=== PATIENT | female | born 1965 | race Caucasian/White ===

== ENCOUNTER 2017-08-18 04:59 | Inpatient (IN) | payer OTHER ==
[2017-08-12 16:51] VITALS: BMI 22.6
--- NOTE | 2017-08-17 13:15 | HP ---
Admitting History and Physical - Primary Care Physician PCP: Everette Mike - Admission Chief Complaint: Left breast cancer History of Present Illness: 52 year old postmenapausal female who was found to have calcifi upper outer aspect left breast on mammogram 04/2017 and 2 areas of calcicfications seen on diagnostic mammogram 05/2017. She underwent stereotactic core biopsy 05/2017 showing and invasive ductal carcinoma upper outer quadrant and 12:00 showing radial sclerosing lesion and ADH on our slide reveiw. Seh underwent breast MRI showing left breast cancer and right enhancement and additional left finding Bilateral core biopsies were negative for cancer. 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 History Source: Patient Limitations to Obtaining History: No Limitations - Past Medical History ...LMP Comment: 2016 Endocrine: Yes: Osteopenia - Past Surgical History Past Surgical History: Yes: Appendectomy (1979) - Smoking History Smoking history: Never smoked Have you smoked in the past 12 months: No Aproximately how many cigarettes per day: 0 - Alcohol/Substance Use Hx Alcohol Use: Yes (SOCIAL) Home Medications - Allergies Allergies/Adverse Reactions: Allergies Allergy/AdvReac Type Severity Reaction Status Date / Time No Known Allergies Allergy Verified 08/12/17 16:43 - Home Medications Home Medications: Ambulatory Orders Ascorbic Acid [Vitamin C] 1,000 mg PO DAILY 08/12/17 Calcium Carbonate [Calcium] 500 mg PO DAILY 08/12/17 Family Disease History - Family Disease History Other Family History: mat aunt lung ca 67. mat uncle CRC Physical Examination Constitutional: Yes: Well Nourished Breast(s): Yes: Other (full C Cup with no ptosis recent biopsy changes from bilateral biopsies, no suspicious mass or adenopathy felt) Problem List - Problems (1) Breast cancer, left breast Code(s): C50.912 - MALIGNANT NEOPLASM OF UNSPECIFIED SITE OF LEFT FEMALE BREAST Qualifiers: Breast location: upper outer quadrant of breast Patient sex: female Assessment/Plan Bilateral total mastectomies left senetenel node biopsy possible axillary node dissection, left lymphoscintigram, reconstruction with DEIP
[2017-08-18] MEDS ORDERED: PAPAVERINE HCL 30 MG/1 ML 10 ML VIAL NR ONE (08:15)
[2017-08-18] MEDS ORDERED: BUPIVACAINE HCL/PF 0.25% (2.5MG/ML) 10 ML VIAL ONE (08:15)
[2017-08-18] MEDS ORDERED: HEPARIN NA (PORCINE) 5,000 UNITS/ML 1ML VIAL ONE (08:15)
[2017-08-18] MEDS ORDERED: ISOSULFAN BLUE 10 MG/ML VIAL SQ ONE (09:05)
[2017-08-18] MEDS ORDERED: MIDAZOLAM HCL 2 MG/2 ML SINGLE DOSE VIAL ONE ×4 (09:05→17:15)
[2017-08-18] MEDS ORDERED: PROPOFOL 20 ML ONE (09:06)
[2017-08-18] MEDS ORDERED: ROCURONIUM BROMIDE 50 MG/5 ML VIAL ONE ×2 (09:06→11:04)
[2017-08-18] MEDS ORDERED: LIDOCAINE HCL/PF 2% SDV 5ML VIAL ONE (09:07)
[2017-08-18] MEDS ORDERED: ceFAZolin SODIUM 1 GM VIAL ONE ×3 (09:29→22:09)
[2017-08-18] MEDS ORDERED: SODIUM CHLORIDE 0.9% P/F 10 ML VIAL IJ ONE ×3 (09:29→16:58)
[2017-08-18] MEDS ORDERED: ceFAZolin SODIUM 1 GM VIAL IVPB ONE ×2 (09:40→15:00)
[2017-08-18] MEDS ORDERED: ONDANSETRON 4 MG/2 ML VIAL ONE ×2 (09:44→20:08)
[2017-08-18] MEDS ORDERED: DEXAMETHASONE SOD PHOSPHATE 4 MG/1 ML VIAL ONE ×2 (09:44→20:08)
[2017-08-18] MEDS ORDERED: SCOPOLAMINE HYDROBROMIDE 1 PATCH PATCH.TD72 ONE (09:46)
[2017-08-18] MEDS ORDERED: HEPARIN NA (PORCINE) 5,000 UNITS/ML 1ML VIAL IVPUSH ONE (09:48)
[2017-08-18] MEDS ORDERED: HEPARIN NA (PORCINE) 5,000 UNITS/ML 1ML VIAL SQ ONE (09:48)
[2017-08-18] MEDS ORDERED: BUPIVACAINE LIPOSOME/PF (EXPAREL) 266 MG/20 ML VIAL NR ONE (10:15)
[2017-08-18] MEDS ORDERED: GLYCOPYRROLATE 0.2 MG/1 ML VIAL ONE ×2 (10:22→19:34)
[2017-08-18] MEDS ORDERED: VASOPRESSIN 20 UNITS/ML VIAL IV ONE (12:45)
[2017-08-18] MEDS ORDERED: VECURONIUM BROMIDE 10 MG VIAL ONE ×2 (13:41→16:58)
[2017-08-18 14:51] LABS: HEMATOCRIT 30.9 % (32.4-45.2); HEMOGLOBIN 10.1 GM/dL (10.7-15.3); MCH 28.9 pg (25.7-33.7); MCHC 32.9 g/dl (32.0-36.0); MEAN CELL VOLUME 87.9 fl (80-96); MEAN PLT VOLUME 8.8 fl (7.5-11.1); PLATELET COUNT 125 K/MM3 (134-434); RBC 3.51 M/mm3 (3.60-5.2)
[2017-08-18] MEDS ORDERED: ePHEDrine SULFATE 50 MG/1 ML AMPULE ONE (16:21)
[2017-08-18] MEDS ORDERED: oxyCODONE HCL 5 MG TABLET PO PRN (19:18)
[2017-08-18] MEDS ORDERED: ACETAMINOPHEN 325 MG TABLET (FP) PO PRN (19:21)
[2017-08-18] MEDS ORDERED: HYDROmorphone HCL CARPU-JECT 1 MG/1 ML DISP.SYRIN IVPB PRN (19:21)
[2017-08-18] MEDS ORDERED: FUROSEMIDE 40 MG/4 ML INJECTABLE VIAL ONE (19:28)
[2017-08-18] MEDS ORDERED: ASPIRIN 325 MG TABLET PO ONE (19:30)
[2017-08-18] MEDS ORDERED: LACTATED RINGERS SOLUTION 1,000 ML IV SCH ×2 (19:30→20:15)
[2017-08-18] MEDS ORDERED: NEOSTIGMINE METHYLSULFATE 0.5 MG/ML - 10 ML MDV ONE (19:34)
[2017-08-18] MEDS ORDERED: BACITRACIN 15 GM TUBE TOPICAL OINTMENT ONE (19:48)
[2017-08-18] MEDS ORDERED: HYDROmorphone *PCA* 10MG/50ML DISP.SYRIN PCA SCH (20:15)
[2017-08-18] MEDS ORDERED: PROMETHAZINE HCL 25 MG/1 ML VIAL IVPUSH PRN (20:15)
[2017-08-18] MEDS ORDERED: ONDANSETRON 4 MG/2 ML VIAL IVPUSH PRN ×2 (20:15)
[2017-08-18] MEDS ORDERED: DEXAMETHASONE SOD PHOSPHATE 4 MG/1 ML VIAL IVPUSH PRN (20:15)
[2017-08-18] MEDS ORDERED: PROMETHAZINE HCL 25 MG/1 ML VIAL IVPB PRN (20:15)
[2017-08-18] MEDS ORDERED: METOCLOPRAMIDE HCL INJECTION 10 MG/2 ML VIAL IVPUSH ONE (20:18)
[2017-08-18] MEDS ORDERED: HYDROmorphone *PCA* 6MG/30ML DISP.SYRIN PCA ONE (20:47)
[2017-08-18] MEDS ORDERED: ASPIRIN 325 MG ENTERIC COATED TABLET (FP) ONE (22:02)
[2017-08-18] MEDS: CEFAZOLIN 1 GM PUSH 1 GM/10 ML DISP.SYRIN IVPUSH SCH (22:08)
--- NOTE | 2017-08-18 23:30 | CONSULT ---
Consult - text type - Consultation Consultation Note: [facility] CC: POD #0 after Bilateral total mastectomies left sentinel node biopsy possible axillary node dissection, left lympho-scintigram, bilat breast reconstruction with DEIP HPI: Briefly Ms Powers is a 52 year old postmenopausal woman w/ invasive ductal carcinoma underwent planned procedure in OR today. Surgery was uneventful , had approx 1000cc intra-op blood loss, received 3x PRBC. Pt was extubated in PACU late in evening. Recovered well. Admitted to ICU for observation and close monitoring of flap perfusion. Had interflap doppler bilaterally, with R>L audible but both +. Pain controlled, hemodyanmically stable. Past Medical History Endocrine Osteopenia Past Surgical History Past Surgical History Appendectomy (1979) Smoking History Smoking history Never smoked Aproximately how many 0 cigarettes per day Alcohol/Substance Use Hx Alcohol Use Yes: SOCIAL Home Medications Medication Instructions Recorded Ascorbic Acid [Vitamin C] 1,000 mg PO DAILY 08/12/17 Calcium Carbonate [Calcium] 500 mg PO DAILY 08/12/17 Current Medications Acetaminophen (Tylenol -) 650 mg PO Q4H PRN PRN Reason: FEVER Ascorbic Acid (Vitamin C -) 1,000 mg PO DAILY [facility] Aspirin (Asa -) 325 mg PO DAILY [facility] Calcium Carbonate (Os-Aramis 500mg -) 500 mg PO DAILY [facility] Dexamethasone Sodium Phosphate (Decadron Injection -) 4 mg IVPUSH ONCE PRN PRN Reason: NAUSEA AND/OR VOMITING Diazepam (Valium -) 5 mg PO Q8H PRN PRN Reason: MUSCLE SPASMS Diphenhydramine HCl (Benadryl Injection -) 25 mg IVPB Q4H PRN PRN Reason: FOR ITCHING Diphenhydramine HCl (Benadryl Injection -) 12.5 mg IVPUSH ONCE PRN PRN Reason: FOR ITCHING Docusate Sodium (Colace -) 100 mg PO BID [facility] Last Admin: 08/18/17 23:32 Dose: 100 mg Enoxaparin Sodium (Lovenox -) 40 mg SQ DAILY [facility] Fentanyl (Sublimaze Injection -) 50 mcg IVPUSH [id number] PRN PRN Reason: PAIN-PACU ORDER X 4 DOSES ONLY Hydromorphone HCl (Dilaudid Injection -) 1 mg IVPB Q3H PRN PRN Reason: PAIN LEVEL 7 - 10 Hydromorphone HCl (Dilaudid Blood Bank Order Control Clerk -) 0 mg SHOPPER SHOPPER TOMASA PRN Reason: Protocol Stop: 08/25/17 20:16 Last Admin: 08/18/17 20:50 Dose: 6 mg Cefazolin Sodium (Ancef -) 1 gm in 10 mls @ 100 mls/hr IVPUSH Q6H-IV [facility]OM[facility] Last Admin: 08/18/17 22:08 Dose: 100 mls/hr Lactated Ringer's (Lactated Ringers Solution) 1,000 mls @ 125 mls/hr IV ASDIR TOMASA Last Admin: 08/18/17 22:16 Dose: 125 mls/hr Ondansetron HCl (Zofran Injection) 4 mg IVPUSH Q4H PRN PRN Reason: NAUSEA AND/OR VOMITING Ondansetron HCl (Zofran Injection) 4 mg IVPUSH Q6H PRN PRN Reason: NAUSEA AND/OR VOMITING Ondansetron HCl (Zofran Injection) 4 mg IVPUSH Q4H PRN PRN Reason: NAUSEA AND/OR VOMITING Oxycodone HCl (Roxicodone -) 5 mg PO Q4H PRN PRN Reason: PAIN LEVEL 1-5 Oxycodone HCl (Roxicodone -) 10 mg PO Q4H PRN PRN Reason: PAIN LEVEL 6-10 Promethazine HCl (Phenergan Injection -) 12.5 mg IVPUSH Q6H PRN PRN Reason: NAUSEA-FOR RESCUE AFTER 15 MIN Promethazine HCl (Phenergan Injection -) 12.5 mg IVPB Q6H PRN PRN Reason: NAUSEA AND/OR VOMITING ROS: 10pt review neg. No imaging. PE Vital Signs Temp 98.6 F 08/18/17 23:00 Pulse 99 H 08/18/17 23:08 Resp 18 08/18/17 23:08 BP 99/73 08/18/17 23:08 Pulse Ox 97 08/18/17 23:08 Intake & Output 08/17/17 08/18/17 08/18/17 23:59 11:59 23:59 Intake Total 1000 2400 Output Total 2276.0 Balance 1000 124.0 Intake: IV 1000 1350 Blood Product 1050 Output: Drainage 176.0 #1 Left Breast 30 #2 Left Abdomen 13 #4 Right Breast 8 Right Abdomen 20 Urine 1100 Estimated Blood Loss 1000 Other: Voiding Method Indwelling Catheter CBC, BMP 08/18/17 14:18 A/ 52 year old woman POD #0 Bilateral total mastectomies left sentinel node biopsy possible axillary node dissection, left lympho-scintigram, bilat breast reconstruction with DEIP P/ -pain control w/ Dilaudid SHOPPER -continuous doppler monitoring/flap viability, notify surgeon of any changes -monitor drain output -ASA -DVT prophy w/ lovenox [id number]
[2017-08-18] MEDS: DOCUSATE SODIUM 100 MG CAPSULE (FP) PO SCH (23:32)
[2017-08-19] MEDS: CEFAZOLIN 1 GM PUSH 1 GM/10 ML DISP.SYRIN IVPUSH SCH ×4 (02:23→21:20)
[2017-08-19] MEDS: ONDANSETRON 4 MG/2 ML VIAL IVPUSH PRN (02:41)
[2017-08-19 06:45] LABS: HEMATOCRIT 35.1 % (32.4-45.2); MCH 29.4 pg (25.7-33.7); MCHC 34.2 g/dl (32.0-36.0); MEAN CELL VOLUME 85.8 fl (80-96); MEAN PLT VOLUME 9.7 fl (7.5-11.1); PLATELET COUNT 169 K/MM3 (134-434); RBC 4.09 M/mm3 (3.60-5.2); RDW 14.2 % (11.6-15.6); WHITE BLOOD COUNT 16.8 K/mm3 (4.0-10.0)
--- NOTE | 2017-08-19 06:45 | OP ---
DATE OF OPERATION: 08/18/2017 PREOPERATIVE DIAGNOSIS: Left breast cancer, upper outer quadrant, with genetic predisposition for breast cancer, TERE (ataxia telangiectasia mutated) gene positive. POSTOPERATIVE DIAGNOSIS: Left breast cancer, upper outer quadrant, with genetic predisposition for breast cancer, TERE (ataxia telangiectasia mutated) gene positive. PROCEDURE: Bilateral inframammary nipple-sparing mastectomies with a left axillary sentinel lymph node biopsy and bilateral deep flap reconstruction. PRIMARY SURGEON: Dorinda Graves MD SEWER AND DRAIN TECHNICIAN: LEXA Moser PRIMARY SURGEONS FOR THE BILATERAL DEEP FLAP RECONSTRUCTION: Dorinda Demarco MD, and Cordell Srivastava MD THEIR SEWER AND DRAIN TECHNICIAN: LEXA Frank ANESTHESIA: General endotracheal anesthesia. COMPLICATIONS: There were no complications. INDICATIONS: Briefly, the patient is a 52-year-old postmenopausal white female of [place] descent with no family history of breast or ovarian cancer. Patients maternal aunt had lung cancer, maternal uncle had a GI cancer. The patient was found to have calcifications in the upper outer aspect of the left breast on mammography on April of 2017 and underwent a stereotactic biopsy showing a moderately differentiated invasive duct cancer, which was ER positive, MT negative, and HER2 positive with a ratio of 2.0 and a proliferative index of 30%. MRI showed a cancer in the left breast, upper outer quadrant, with 2 other areas which were seen on MRI, which were biopsied under MRI guidance, came back benign. There was also a right breast finding seen on MRI, which was biopsied and came back benign. The patient underwent genetic testing and was found to have an TERE positive mutation. She was given the option of a wide excision, but chose to undergo a bilateral mastectomies and was offered a nipple-sparing technique. The patient was seen by plastic surgery and opted on bilateral deep flap reconstructions. DESCRIPTION OF PROCEDURE: She was brought in for the surgery on August 18, 2017. She underwent a lymphoscintigraphy in nuclear medicine and was brought to the holding area at [facility], where informed consent was obtained and site verification was made. She was marked preoperatively by the plastic surgeons. She was brought into the operating room and laid on the OR table in the supine position. Venodynes were placed on the lower extremities prior to induction. She received 2 g of Ancef prior to incision. The abdominal perforators were marked out using the Doppler by the plastic surgeons. Then, 3 mL of lymphazurin blue were injected subcutaneously underneath the nipple areolar complex, and massage was instituted. The patient was then sterilely prepped and draped, prepping both breasts, axilla, as well as the abdominal wall for the deep flap reconstruction. She did receive 5000 units of subcutaneous heparin at the beginning of the procedure. She underwent general endotracheal anesthesia. The left sentinel lymph node biopsy was first performed. An incision was made just below the hair-bearing area of the left axilla, and dissection was undertaken. No blue nodes were found, but 3 hot nodes were found in the level 1 and level 2 region of the left axilla. The 1st sentinel node had a 10-second gamma count of 2227, the 2nd sentinel lymph node had a 10-second gamma count of 3564, the 3rd sentinel lymph node had a 10-second gamma count of 1113. Background count after removal of these 3 nodes was 48. These were all sent for frozen section, came back benign. Hemostasis was achieved. At this point, the nipple-sparing mastectomy was performed on the left side. An inframammary incision was made about 12 cm in length, and the skin edges everted, and the breast tissue retracted inferiorly using Rudolph clamps. The skin flap was raised using the PEAK radiofrequency device superiorly to the level of the clavicle, medially to the level of the sternum, laterally to the level of the latissimus, and inferiorly below the level of the inframammary fold. The breast was taken out off the pectoralis major muscle from inferomedial to superolateral, completely removed intact. It was oriented with the long-lateral short-superior suture and weighed to allow for appropriate cosmetic result. Specimen radiograph was taken on the left breast which showed all 3 clips completely removed. A retroareolar biopsy was taken underneath the left nipple areolar complex and sent for frozen section. It came back negative, so, the left nipple was spared. Hemostasis was achieved, and the wound was copiously irrigated with warm sterile saline. At this point, gloves and instruments were changed, and the right mastectomy was performed prophylactically using a symmetrical inframammary incision 12 cm in length in the inframammary fold of the right breast. The skin edges everted, and the breast was retracted inferiorly using Rudolph clamps. The skin flap was raised using the PEAK radiofrequency device superiorly to the level of the clavicle, medially to the level of the sternum, laterally to the level of the latissimus, and inferiorly below the level of the inframammary fold. The breast was taken out off the pectoralis major muscle from inferomedial to superolateral and completely removed intact. It was oriented with the long-lateral short-superior suture and weighed to allow for appropriate cosmetic result. At this point, skin flaps were trimmed for good cosmetic result. A retroareolar biopsy was taken underneath the right nipple areolar complex and sent for frozen section. It came back benign, so, the right nipple was spared, as well. Hemostasis was achieved, and the wound was copiously irrigated with warm sterile saline. At this point, the deep flap reconstruction was being performed by Dr. Demarco and Dr. Srivastava, and they will dictate the reconstruction separately. Estimated blood loss after the mastectomy was about 150 mL. The patient was stable at this point in the case. All sponge and needle counts were correct at this point of the case, as well. DORINDA GRAVES M.D. [id number]
[2017-08-19 07:05] LABS: ALBUMIN 2.3 g/dl (3.4-5.0); ANION GAP 11 (8-16); BILIRUBIN,TOTAL 0.6 mg/dL (0.2-1.0); BLOOD UREA NITROGEN 16 mg/dL (7-18); CALCIUM 7.4 mg/dL (8.5-10.1); CHLORIDE 108 mmol/L (98-107); CO2 24 mmol/L (21-32); CREATININE 0.9 mg/dL (0.55-1.02); GLUCOSE,RANDOM 130 mg/dL (74-106); POTASSIUM 3.8 mmol/L (3.5-5.1); SGOT/AST 34 U/L (15-37); SGPT/ALT 21 U/L (12-78); SODIUM 143 mmol/L (136-145); TOT PROT 4.5 g/dl (6.4-8.2)
[2017-08-19 07:06] LABS: ALK PHOS 47 U/L (45-117)
--- NOTE | 2017-08-19 07:26 | PN ---
Progress Note (short form) - Note Progress Note: POD#1 s/p bilateral NSM with left SLN Bx and immediate bilateral SHIRLEY flap reconstruction. Overnight, she has had minimal pain, which is well-controlled with APPLICATIONS CONSULTANT. She had some nausea which responded well to antiemetics. AVSS HR: 90-100 I/O: 1100/390 (Since OR), She was over 1L positive in OR SARITHA: Left Breast: 35 Right Breast: 13 Abd: 33/40 On exam, bilateral breasts soft with normal postop ecchymosis of bilateral mastectomy flaps. Implantable signals biphasic bilaterally. Abdomen soft, NT/ ND. All incisions C/D/I Labs: Hct 35 A/P: -Hep Lock IVF; IVF only for low UO or hypotension -No more labs unless clincally indicated -Clear liquid diet (no caffeine or chocolate); advance as tolerated -D/C APPLICATIONS CONSULTANT; PO pain control with Dilaudid prn for breakthrough -OOB to chair today with assitance -Continue Q1 hour flap checks; may transition to Q2 hours at 5pm -Case management consult for D/C planning and VNS setup (likely D/C Tuesday) -D/C Neri once OOB -Daily ASA -Daily Lovenox
--- NOTE | 2017-08-19 08:59 | PN ---
Progress Note, Physician Chief Complaint: S/P bilateral mastectomy, snbx with SHIRLEY reconstruction POD#1 History of Present Illness: Patient seen this am and reports good pain control. Tolerating sips of water. Otherwise without any other complaints. - Current Medication List Current Medications: Active Medications Acetaminophen (Tylenol -) 650 mg PO Q4H PRN PRN Reason: FEVER Ascorbic Acid (Vitamin C -) 1,000 mg PO DAILY [facility] Aspirin (Asa -) 325 mg PO DAILY [facility] Calcium Carbonate (Os-Aramis 500mg -) 500 mg PO DAILY [facility] Dexamethasone Sodium Phosphate (Decadron Injection -) 4 mg IVPUSH ONCE PRN PRN Reason: NAUSEA AND/OR VOMITING Diazepam (Valium -) 5 mg PO Q8H PRN PRN Reason: MUSCLE SPASMS Diphenhydramine HCl (Benadryl Injection -) 25 mg IVPB Q4H PRN PRN Reason: FOR ITCHING Diphenhydramine HCl (Benadryl Injection -) 12.5 mg IVPUSH ONCE PRN PRN Reason: FOR ITCHING Docusate Sodium (Colace -) 100 mg PO BID [facility] Last Admin: 08/18/17 23:32 Dose: 100 mg Enoxaparin Sodium (Lovenox -) 40 mg SQ DAILY [facility] Fentanyl (Sublimaze Injection -) 50 mcg IVPUSH [id number] PRN PRN Reason: PAIN-PACU ORDER X 4 DOSES ONLY Hydromorphone HCl (Dilaudid Injection -) 1 mg IVPB Q3H PRN PRN Reason: PAIN LEVEL 7 - 10 Cefazolin Sodium (Ancef -) 1 gm in 10 mls @ 100 mls/hr IVPUSH Q6H-IV [facility] Last Admin: 08/19/17 02:23 Dose: 100 mls/hr Ondansetron HCl (Zofran Injection) 4 mg IVPUSH Q4H PRN PRN Reason: NAUSEA AND/OR VOMITING Last Admin: 08/19/17 02:41 Dose: 4 mg Ondansetron HCl (Zofran Injection) 4 mg IVPUSH Q6H PRN PRN Reason: NAUSEA AND/OR VOMITING Ondansetron HCl (Zofran Injection) 4 mg IVPUSH Q4H PRN PRN Reason: NAUSEA AND/OR VOMITING Oxycodone HCl (Roxicodone -) 5 mg PO Q4H PRN PRN Reason: PAIN LEVEL 1-5 Oxycodone HCl (Roxicodone -) 10 mg PO Q4H PRN PRN Reason: PAIN LEVEL 6-10 Promethazine HCl (Phenergan Injection -) 12.5 mg IVPUSH Q6H PRN PRN Reason: NAUSEA-FOR RESCUE AFTER 15 MIN Promethazine HCl (Phenergan Injection -) 12.5 mg IVPB Q6H PRN PRN Reason: NAUSEA AND/OR VOMITING - Objective Vital Signs: Vital Signs Temperature 98.4 F 08/19/17 06:07 Pulse Rate 94 H 08/19/17 06:07 Respiratory Rate 16 08/19/17 06:07 Blood Pressure 106/71 08/19/17 06:07 O2 Sat by Pulse Oximetry (%) 98 08/18/17 23:43 Constitutional: Yes: Well Nourished, No Distress Gastrointestinal: Yes: Other (abdominal incisions are clean without discharge or erythema) Breast(s): Yes: Other (Bilateral chest flaps warm with mild ecchymosis. JPs intact. Incisions are clean without discharge or erythema) Extremities: Yes: Other (bilateral extremities without pain or swelling.) Labs: CBC, BMP 08/19/17 06:15 08/19/17 06:15 Problem List - Problems (1) Breast cancer, left breast Code(s): C50.912 - MALIGNANT NEOPLASM OF UNSPECIFIED SITE OF LEFT FEMALE BREAST Qualifiers: Breast location: upper outer quadrant of breast Patient sex: female Assessment/Plan Assessment: S/P bilateral mastectomy with left snbx and SHIRLEY reconstruction POD#1 Plan: ASA and Lovenox today D/C [facility] and transition to Dilaudid as per plastics OOB in pm as per plastics Contiue monitoring dopplers Plan for discharge possibly this Tuesday
[2017-08-19] MEDS: DOCUSATE SODIUM 100 MG CAPSULE (FP) PO SCH ×2 (09:12→22:04)
[2017-08-19] MEDS: ENOXAPARIN NA (PORCINE) 40 MG/0.4 ML DISP.SYRIN SQ SCH (09:12)
[2017-08-19] MEDS: ASPIRIN 325 MG TABLET PO SCH (09:12)
[2017-08-19] MEDS: ASCORBIC ACID 500 MG TABLET (FP) PO SCH (09:13)
[2017-08-19] MEDS: CALCIUM (OYSTER SHELL) 500 MG TABLET (FP) PO SCH (09:13)
--- NOTE | 2017-08-19 13:07 | PN ---
Progress Note, Physician History of Present Illness: Doing well pos-op. -Flatus, -BM Pain is well controlled. SARITHA drainage serosanguinous. Dopplers checks Qhour - Current Medication List Current Medications: Active Medications Acetaminophen (Tylenol -) 650 mg PO Q4H PRN PRN Reason: FEVER Ascorbic Acid (Vitamin C -) 1,000 mg PO DAILY [facility] Last Admin: 08/19/17 09:13 Dose: 1,000 mg Aspirin (Asa -) 325 mg PO DAILY [facility] Last Admin: 08/19/17 09:12 Dose: 325 mg Calcium Carbonate (Os-Aramis 500mg -) 500 mg PO DAILY [facility] Last Admin: 08/19/17 09:13 Dose: 500 mg Dexamethasone Sodium Phosphate (Decadron Injection -) 4 mg IVPUSH ONCE PRN PRN Reason: NAUSEA AND/OR VOMITING Diazepam (Valium -) 5 mg PO Q8H PRN PRN Reason: MUSCLE SPASMS Diphenhydramine HCl (Benadryl Injection -) 25 mg IVPB Q4H PRN PRN Reason: FOR ITCHING Diphenhydramine HCl (Benadryl Injection -) 12.5 mg IVPUSH ONCE PRN PRN Reason: FOR ITCHING Docusate Sodium (Colace -) 100 mg PO BID [facility] Last Admin: 08/19/17 09:12 Dose: 100 mg Enoxaparin Sodium (Lovenox -) 40 mg SQ DAILY [facility] Last Admin: 08/19/17 09:12 Dose: 40 mg Fentanyl (Sublimaze Injection -) 50 mcg IVPUSH [id number] PRN PRN Reason: PAIN-PACU ORDER X 4 DOSES ONLY Hydromorphone HCl (Dilaudid Injection -) 1 mg IVPB Q3H PRN PRN Reason: PAIN LEVEL 7 - 10 Cefazolin Sodium (Ancef -) 1 gm in 10 mls @ 100 mls/hr IVPUSH Q6H-IV [facility] Last Admin: 08/19/17 09:11 Dose: 100 mls/hr Ondansetron HCl (Zofran Injection) 4 mg IVPUSH Q4H PRN PRN Reason: NAUSEA AND/OR VOMITING Last Admin: 08/19/17 02:41 Dose: 4 mg Ondansetron HCl (Zofran Injection) 4 mg IVPUSH Q6H PRN PRN Reason: NAUSEA AND/OR VOMITING Ondansetron HCl (Zofran Injection) 4 mg IVPUSH Q4H PRN PRN Reason: NAUSEA AND/OR VOMITING Oxycodone HCl (Roxicodone -) 5 mg PO Q4H PRN PRN Reason: PAIN LEVEL 1-5 Oxycodone HCl (Roxicodone -) 10 mg PO Q4H PRN PRN Reason: PAIN LEVEL 6-10 Promethazine HCl (Phenergan Injection -) 12.5 mg IVPUSH Q6H PRN PRN Reason: NAUSEA-FOR RESCUE AFTER 15 MIN Promethazine HCl (Phenergan Injection -) 12.5 mg IVPB Q6H PRN PRN Reason: NAUSEA AND/OR VOMITING - Objective Vital Signs: Vital Signs Temperature 98.4 F 08/19/17 06:07 Pulse Rate 92 H 08/19/17 08:00 Respiratory Rate 16 08/19/17 09:00 Blood Pressure 103/80 08/19/17 08:00 O2 Sat by Pulse Oximetry (%) 98 08/19/17 09:00 Additional Findings/Remarks: GEN: AAOx3, NAD, Lying comfortably in bed HEENT: PERRLA, EOMi CV: S1, S2, RRR LUNG: CTABL ABD: Soft, mild TTP MSK: No edema, no erythema NEURO: CN 2-12 intact Labs: CBC, BMP 08/19/17 06:15 08/19/17 06:15 Assessment/Plan 52yo F with invasive ductal carcinoma who received a bilateral mastectomy and flap reconstruction. EBL 1,000, s/p 3u PRBC # Onc: B/L mastectomy and flap reconstruction -- Pain well controlled. Q1 flap checks with dopplers -- Ancef 1g Q6 for prophylaxis # FEN/PPx: -- No IVF, clear liquids, ADAT -- Lovenox, ASA -- PT ordered # Dispo -- Keep in ICU for doppler flap checks Schuyler Yan MD PGY1 ICU Resident
--- NOTE | 2017-08-19 13:14 | PN ---
Teaching Attending Note Name of Resident: Schuyler Yan ATTENDING PHYSICIAN STATEMENT I saw and evaluated the patient. I reviewed the resident's note and discussed the case with the resident. I agree with the resident's findings and plan as documented. SUBJECTIVE: Patient seen and examined in the ICU. Awake and alert. Denies pain but appears to be mildly splinting. Intake & Output 08/16/17 08/17/17 08/18/17 08/19/17 23:59 23:59 23:59 23:59 Intake Total 3400 1100 Output Total 2276.0 490 Balance 1124.0 610 Last Vital Signs Temp Pulse Resp BP Pulse Ox 99 F 100 H 17 114/79 98 08/19/17 12:00 08/19/17 12:00 08/19/17 12:00 08/19/17 12:00 08/19/17 09:00 Active Medications Acetaminophen (Tylenol -) 650 mg PO Q4H PRN PRN Reason: FEVER Ascorbic Acid (Vitamin C -) 1,000 mg PO DAILY [facility] Last Admin: 08/19/17 09:13 Dose: 1,000 mg Aspirin (Asa -) 325 mg PO DAILY [facility] Last Admin: 08/19/17 09:12 Dose: 325 mg Calcium Carbonate (Os-Aramis 500mg -) 500 mg PO DAILY [facility] Last Admin: 08/19/17 09:13 Dose: 500 mg Dexamethasone Sodium Phosphate (Decadron Injection -) 4 mg IVPUSH ONCE PRN PRN Reason: NAUSEA AND/OR VOMITING Diazepam (Valium -) 5 mg PO Q8H PRN PRN Reason: MUSCLE SPASMS Diphenhydramine HCl (Benadryl Injection -) 25 mg IVPB Q4H PRN PRN Reason: FOR ITCHING Diphenhydramine HCl (Benadryl Injection -) 12.5 mg IVPUSH ONCE PRN PRN Reason: FOR ITCHING Docusate Sodium (Colace -) 100 mg PO BID [facility] Last Admin: 08/19/17 09:12 Dose: 100 mg Enoxaparin Sodium (Lovenox -) 40 mg SQ DAILY [facility] Last Admin: 08/19/17 09:12 Dose: 40 mg Fentanyl (Sublimaze Injection -) 50 mcg IVPUSH [id number] PRN PRN Reason: PAIN-PACU ORDER X 4 DOSES ONLY Hydromorphone HCl (Dilaudid Injection -) 1 mg IVPB Q3H PRN PRN Reason: PAIN LEVEL 7 - 10 Cefazolin Sodium (Ancef -) 1 gm in 10 mls @ 100 mls/hr IVPUSH Q6H-IV [facility] Last Admin: 08/19/17 09:11 Dose: 100 mls/hr Ondansetron HCl (Zofran Injection) 4 mg IVPUSH Q4H PRN PRN Reason: NAUSEA AND/OR VOMITING Last Admin: 08/19/17 02:41 Dose: 4 mg Ondansetron HCl (Zofran Injection) 4 mg IVPUSH Q6H PRN PRN Reason: NAUSEA AND/OR VOMITING Ondansetron HCl (Zofran Injection) 4 mg IVPUSH Q4H PRN PRN Reason: NAUSEA AND/OR VOMITING Oxycodone HCl (Roxicodone -) 5 mg PO Q4H PRN PRN Reason: PAIN LEVEL 1-5 Oxycodone HCl (Roxicodone -) 10 mg PO Q4H PRN PRN Reason: PAIN LEVEL 6-10 Promethazine HCl (Phenergan Injection -) 12.5 mg IVPUSH Q6H PRN PRN Reason: NAUSEA-FOR RESCUE AFTER 15 MIN Promethazine HCl (Phenergan Injection -) 12.5 mg IVPB Q6H PRN PRN Reason: NAUSEA AND/OR VOMITING Constitutional: Yes: Awake and alert, NAD Respiratory: Clear Gastrointestinal: Yes: Abdominal incisions are clean without discharge or erythema, (+) BS Breast(s): Yes: Other (Bilateral chest flaps warm with mild ecchymosis. JPs intact. Incisions are clean without discharge or erythema) Extremities: Yes: (+) PP Neuro: Non-focal Laboratory Results - last 24 hr 08/18/17 08/18/17 08/19/17 09:13 14:18 06:15 WBC 15.0 H D 16.8 H RBC 3.51 L D 4.09 Hgb 10.1 L D 12.0 D Hct 30.9 L D 35.1 MCV 87.9 85.8 MCH 28.9 29.4 MCHC 32.9 34.2 RDW 13.0 14.2 Plt Count 125 L D 169 D MPV 8.8 9.7 D Sodium Potassium Chloride Carbon Dioxide Anion Gap BUN Creatinine Creat Clearance w eGFR Random Glucose Calcium Total Bilirubin AST ALT Alkaline Phosphatase Total Protein Albumin Blood Type A NEGATIVE Crossmatch IS Only See Detail 08/19/17 06:15 WBC RBC Hgb Hct MCV MCH MCHC RDW Plt Count MPV Sodium 143 Potassium 3.8 Chloride 108 H Carbon Dioxide 24 Anion Gap 11 BUN 16 Creatinine 0.9 Creat Clearance w eGFR > 60 Random Glucose 130 H Calcium 7.4 L Total Bilirubin 0.6 AST 34 ALT 21 Alkaline Phosphatase 47 Total Protein 4.5 L Albumin 2.3 L Blood Type Crossmatch IS Only IMP: POD #1 Bilateral total mastectomies left sentinel node biopsy possible axillary node dissection, left lympho-scintigram, bilat breast reconstruction with DEIP Plan: Pain control w/Dilaudid BOOKMAKER MAP Continuous doppler monitoring/flap viability, notify surgeon of any changes Monitor drain output ASA VTE prophylaxis with Lovenox Dr Covarrubias Critical care time spent in reviewing chart, evaluating patient and formulating plan - 36 minutes.
[2017-08-19] MEDS: oxyCODONE HCL 5 MG TABLET PO PRN (14:16)
--- NOTE | 2017-08-19 15:35 | OP ---
DATE OF OPERATION: 08/18/2017 PREOPERATIVE DIAGNOSES: 1. Left breast cancer. 2. 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 3. Acquired absence of bilateral breasts. POSTOPERATIVE DIAGNOSES: 1. Left breast cancer. 2. 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 3. Acquired absence of bilateral breasts. PROCEDURE: 1. Immediate left breast reconstruction with deep free flap. 2. Immediate right breast reconstruction with deep inferior epigastric loss prevention officer microvascular free flap. 3. Bilateral fourth rib partial resection. 4. Bilateral exploration of internal mammary vessels with extensive adventitiectomies. 5. Bilateral ultrasound-guided transverse abdominis plane blocks. 6. Reinforcement of anterior abdominal wall with mesh. ATTENDING SURGEON: Cordell Carballo MD CO-SURGEON: Ramo Demarco MD WATCH PARTS INSPECTOR: Alexander Bolanos RPA ANESTHESIA: General endotracheal. ESTIMATED BLOOD LOSS: 500 mL SPECIMEN: As per Surgical Oncology. DRAINS: 1. Number 15 round Felipe drain x1 to right breast. 2. Number 15 round Felipe drain x1 to left breast. 3. Number 15 round Felipe drain x2 to abdomen. COMPLICATIONS: None. CONDITION: Stable to recovery room, extubated. INDICATIONS: The patient is a 52-year-old female who has recently been diagnosed with an invasive cancer of the left breast. In addition, she has tested positive for a genetic mutation making her susceptible to further development of breast cancer. The patient is therefore indicated for bilateral nipple-sparing mastectomies as well as a left sentinel lymph node biopsy. The patient was evaluated preoperatively for immediate reconstruction and she is most appropriately a candidate for autologous reconstruction using her lower abdominal tissue. The risks, benefits and alternatives of the reconstruction were discussed with the patient preoperatively and all questions were answered. The risks include, but are not limited to, bleeding, infection, pain, the need for revision or further surgery, partial or complete flap loss, damage to neighboring structures including nerves, arteries, veins and tendons. The patient understands these risks and has elected to proceed with surgery. DESCRIPTION OF PROCEDURE: After proper identification and marking of the patient in the preoperative holding area, the patient was transported to the operating room and placed supine on the table while noninvasive anesthesia monitors were applied. Intravenous access was established, general anesthesia was administered, and the patient was intubated without difficulty. SCD boots were applied to bilateral lower extremities and 5000 units of subcutaneous heparin were then given. Intravenous antibiotics were then given. A Neri catheter was then placed. The patient's bilateral breasts as well as abdomen and flanks were then prepped and draped sterilely. After a timeout was performed, Dr. Mike from Surgical Oncology proceeded to perform bilateral nipple-sparing mastectomies through an inframammary fold approach, as well as a left sentinel lymph node biopsy. These procedures will all be dictated separately. The intraoperative frozen section on the sentinel node biopsy was negative for metastatic disease. Concurrently, Dr. Demarco and Shalini began working independently as co-surgeons with separate instrument set-ups. Attention was first turned towards the abdomen where skin hooks were placed at the 12 and 6 o'clock positions. The umbilicus was circumferentially incised with a number 15 blade. A Metzenbaum scissor was then used to dissect around the umbilical stalk with care taken to leave adequate periumbilical fat. This was carried down to the anterior abdominal wall. Next, the superior and inferior limbs of the lower abdominal flap were incised with a number 10 blade. The superior limb was carried down through the full thickness of the subcutaneous tissue with electrocautery with care taken to bevel slightly outwards. Once the anterior abdominal wall was reached, the superior abdominal skin flap was raised up to the xiphoid process in the midline and the costal margin bilaterally. The inferior incision was carried down through the subcutaneous tissue with electrocautery. Bilateral superficial inferior epigastric veins were identified. More proximal dissections along these veins were performed. Care was taken to individually identify, circumferentially dissect, ligate, and divide side branches. Once adequate length and caliber had been achieved, the veins were ligated and divided. The remainder of the subcutaneous tissue was then dissected down to the anterior abdominal wall. The was then incised in the midline. This was carried down through the full thickness of the subcutaneous tissue with electrocautery until the linea alba was reached. At this point, attention was turned toward the harvesting of the right-sided flap. The flap was raised from a lateral to medial direction just above the level of the fascia. There were noted to be three moderate-size lateral row perforators. Dissection along the medial side of the flap was then performed. There was noted to be one medial row loss prevention officer which was located in the midline and noted to reside on the periphery of the flap. Therefore, the decision was made to base the flap on the three lateral row perforators. The remainder of the flap was raised off of the anterior abdominal wall. The lateral row perforators were circumferentially dissected with bipolar electrocautery. The fascia was then opened superiorly and inferiorly as well as intervening between the perforators. At this point, retrograde loss prevention officer dissections were performed through the rectus abdominis muscle fibers. Care was taken to divide the muscle fibers longitudinally. Muscular side branches were individually identified, circumferentially dissected, ligated, and divided. The perforators were dissected to their takeoff of the inferior epigastric pedicles. The superior continuation of the pedicle was ligated and divided. At this point, a more proximal pedicle dissection was performed until adequate length and caliber had been achieved. At this point, the flap was temporarily stapled in place. A Doppler signal was achieved and therefore, the flap was completely de-epithelialized. Attention was turned toward the left-sided abdominal flap for harvesting. The flap was raised from a medial to lateral direction as well as a lateral to medial direction until the medial and lateral rows were identified, respectively. There were noted to be very small perforators along the medial and lateral rows. The largest of these small perforators was a periumbilical medial row loss prevention officer and therefore, the fascia was opened around this and the fascial superiorly to another small medial row loss prevention officer. At this point, retrograde loss prevention officer dissections were performed along these medial row perforators through the rectus abdominis muscle fibers. The perforators were both noted to be in inscription points in the rectus muscle. The dissection of the perforators was continued down to the level of the posterior rectus sheath. At this point, a small cuff of central muscle was included with the perforators due to their small size and friability. This cuff was maintained between the perforators and there were noted to be good lateral and medial strips of muscle remaining. The takeoff of the perforators from the inferior epigastric pedicle was then identified. A more proximal pedicle dissection was performed until adequate length and caliber had been achieved. The remainder of the flap was then raised off the anterior abdominal wall. At this point, the flap was temporarily stapled in place and a Doppler signal was achieved. Therefore, the flap was completely de-epithelialized. There was noted to be good bleeding from the dermis and also into the flap. At this point, attention was turned toward the left breast, where the left breast pocket was irrigated and hemostasis was ensured. All loose fat debris was removed. Self-retaining retractors were placed. The intercostal space between the third and fourth ribs was identified and electrocautery was used to incise the pectoralis major muscle fibers along the length of their course just at the level of the superior surface of the fourth rib. This dissection was carried down to the rib and the periosteum and perichondrium were incised. At this point, a circumferential subperiosteal and subperichondrial dissection was performed. Resection of the left fourth rib at the costochondral junction was then performed with a rongeur. The periosteum on the deep side was then incised and the underlying internal mammary artery with its accompanying vein was identified. At this point, microvascular instruments and techniques were used to explore the internal mammary vessels. Extensive adventitiectomies were performed on the artery as well as the accompanying vein. Once the vessels were adequately prepared, attention was turned toward the right breast pocket where the exact same procedure was performed in order to partially resect the right fourth rib and explore the internal mammary vessels and therefore, only one side will be dictated. Once bilateral internal mammary vessels were adequately prepared, attention was turned toward the microvascular transfers. The right-sided abdominal flap was ligated and divided at the most proximal extent of the pedicle dissection. It was brought up to the left breast pocket where it was temporarily stapled in place. The microvascular anastomoses were then performed. There was noted to be a single venous outflow from the inferior epigastric pedicle. A 2.5-mm [employer] brand manager was used to anastomose the inferior epigastric vein with the internal mammary vein. Release of all clamps revealed good backflow across this anastomosis. Next, a primary hand-sewn anastomosis was performed between the internal mammary artery and the inferior epigastric artery using 8-0 nylon suture in a simple interrupted fashion. Release of all clamps revealed good flow across this anastomosis. A second venous anastomosis was then performed between the superficial inferior epigastric vein and the retrograde stump of the internal mammary vein. This was performed using a 2.5-mm [employer] brand manager and release of all clamps revealed good flow across this anastomosis. At this point, there was noted to be good bleeding from the flap's dermal edges and a Dopplerable signal. The [employer] Doppler system was brought into the field. A window around the inferior epigastric artery distal to the anastomosis was created. The [employer] implantable Doppler was then placed around this. The wire was cinched to the skin at the lateral extent of the inframammary fold and was hooked up to the implantable Doppler machine. There was noted to be a good signal. Therefore, attention was turned toward insetting of the flap. The flap was carefully positioned into the left breast pocket and care was taken to ensure a good lie of the pedicle without twisting or kinking. Once this was ensured, the flap was inset to the chest wall using a 2-0 Vicryl suture in a simple interrupted fashion. A number 15 round Felipe drain was then placed into the left breast pocket and brought out through a separate stab incision laterally and secured to the skin with a 3-0 nylon suture. The mastectomy skin flap was then re-draped over the flap, and there was noted to be a very good shape. Therefore, the leading edge of the mastectomy flap was trimmed with a facelift scissor in order to freshen the edge. A layered closure of the inframammary fold was then performed using a 3-0 Monocryl in a buried deep dermal fashion, followed by a 3-0 Monocryl in a running subcuticular fashion. At this point, attention was turned toward the right breast for the microvascular transfer. The left-sided abdominal flap was ligated and divided to its proximal extent of the pedicle dissection. It was the right breast pocket where it was temporarily stapled in place. A 2.0-mm [employer] brand manager was used to anastomose the larger of the two venae comitantes of the inferior epigastric system to the antegrade internal mammary vein. Release of all clamps revealed good backflow across this anastomosis. Next, the internal mammary artery was anastomosed to the inferior epigastric artery using an 8-0 nylon suture in a simple interrupted fashion. Release of all clamps revealed good flow across this anastomosis. There was noted to be egress of venous blood from the remaining flap vein. The remaining flap vein, however, was noted to be quite small and therefore, attention was turned toward the superficial inferior epigastric vein. This was noted to be quite large and release of the clamp on this revealed good egress of venous blood. Therefore, the superficial inferior epigastric vein was anastomosed to the retrograde stump of the internal mammary vein using a 2.5-mm [employer] brand manager. Once this was completed, the [employer] implantable Doppler was placed around the inferior epigastric artery in a similar fashion to the left side and therefore, only one side will be dictated. The flap was then carefully positioned in the right breast pocket and was inset and closed in a similar fashion to the left side and therefore, only one side will be dictated. Concurrently, closure of the abdomen was performed. The bilateral fascial incisions were reapproximated using a 0 Quill suture in a simple running fashion. There was noted to be tension, especially on the left side of the fascial closure, and therefore, the decision was made to reinforce the anterior abdominal wall with a soft mesh. A 5 x 10 piece of basic soft mesh was opened. It was bathed in saline and was placed over the anterior abdominal wall. It was secured in multiple locations using a 2-0 Vicryl suture in a simple interrupted fashion. Once this was completed, the ultrasound system was brought into the field. It was sterilely draped. A local anesthetic solution consisting of 20 mL of Exparel mixed with 30 mL of 0.25% Marcaine and 80 mL of normal saline was used to perform bilateral transverse abdominis plane blocks. A total of 30 mL were injected into each transverse abdominis plane, again under ultrasound guidance. Once this was completed, two number 15 round Felipe drains were placed in the abdominal pocket and brought out through separate stab incisions laterally and secured to the skin with 3-0 nylon sutures. The patient was placed into a flexed position. The superior abdominal skin flap was advanced and closed in layers using a 2-0 Vicryl in an interrupted buried fashion in Rosetta layer, followed by a 3-0 Monocryl in a buried deep dermal fashion and finally, a 3-0 Monocryl in a running subcuticular fashion. The site of the umbilicus transposition had been marked. A vertically oriented ellipse was excised with a core of fat. The umbilicus was transposed and inset using 3-0 Monocryl in a buried deep dermal fashion, followed by a 5-0 nylon in a simple running fashion. At the conclusion of the closure, bilateral implantable Doppler signals were noted to be biphasic and therefore, attention was turned toward the dressings. Prineo tape was applied to all incisions. The umbilicus was dressed with Xeroform, followed by dry gauze and Tegaderm. All drains were dressed with Biopatches and Tegaderm, and at this point, the patient was slowly awakened, was extubated without incident, was placed into a surgical bra and was transported to the recovery room in stable condition. CORDELL CARBALLO M.D. [id number]
--- NOTE | 2017-08-19 15:44 | PN ---
Progress Note (short form) - Note Progress Note: Anesthesia Pt seen and examined S:Alert and awake O: CBC, BMP 08/19/17 06:15 08/19/17 06:15 Vital Signs Temperature 99 F 08/19/17 12:00 Pulse Rate 81 08/19/17 14:13 Respiratory Rate 17 08/19/17 14:13 Blood Pressure 108/77 08/19/17 14:13 O2 Sat by Pulse Oximetry (%) 98 08/19/17 09:00 A/P: s/p bilateral mastectomy Doing well post op Continue current care Darryl Chauhan MD
[2017-08-19] MEDS ORDERED: HYDROmorphone HCL CARPU-JECT 2 MG/1 ML DISP.SYRIN ONE (19:43)
[2017-08-19] MEDS: diazePAM 5 MG TABLET PO PRN (22:04)
[2017-08-20] MEDS: CEFAZOLIN 1 GM PUSH 1 GM/10 ML DISP.SYRIN IVPUSH SCH ×4 (02:09→20:27)
--- NOTE | 2017-08-20 08:09 | PN ---
Progress Note (short form) - Note Progress Note: POD#2 s/p bilateral NSM with left SLN Bx and immediate bilateral SHIRLEY flap reconstruction. She was OOB to chair yesterday for a small amount of time. She experienced anxiety and nausea while trying to get OOB and also had an episode of bradycardia. AVSS HR: 70's-80's I/O: 1600/1875 UO: 1550 SARITHA: Left Breast: 40 Right Breast: 20 Abd: 105/125 On exam, bilateral breasts soft with normal postop ecchymosis of bilateral mastectomy flaps. Implantable signals biphasic bilaterally. Abdomen soft, NT/ ND. All incisions C/D/I Labs: Hct 35 A/P: -Advance to regular diet -OOB to chair->ambulate in flexed position as tolerated -D/C Neri -D/C all IV narcotics as they are making patient nauseas -Percocet/Toradol prn pain -Valium prn muscle spasms -Q2 hour doppler checks -Physical therapy for OOB and ambulate -DVT prophylaxis -Daily ASA -Possible D/C tomorrow vs Tuesday
[2017-08-20] MEDS: diazePAM 5 MG TABLET PO PRN (10:00)
--- NOTE | 2017-08-20 10:22 | PN ---
Progress Note (short form) - Note Progress Note: Patient seen and examined in the ICU. Awake and alert. Reports pain is better. Had some nausea suspected from pain meds. Seen by plastic surgery today. Intake & Output 08/17/17 08/18/17 08/19/17 08/20/17 23:59 23:59 23:59 23:59 Intake Total 3400 1600 200 Output Total 2276.0 1875 910 Balance 1124.0 -275 -710 Last Vital Signs Temp Pulse Resp BP Pulse Ox 98.2 F 82 18 99/61 100 08/20/17 06:00 08/20/17 06:00 08/20/17 06:00 08/20/17 06:00 08/19/17 21:00 Active Medications Acetaminophen (Tylenol -) 650 mg PO Q4H PRN PRN Reason: FEVER Ascorbic Acid (Vitamin C -) 1,000 mg PO DAILY [facility] Last Admin: 08/19/17 09:13 Dose: 1,000 mg Aspirin (Asa -) 325 mg PO DAILY [facility] Last Admin: 08/19/17 09:12 Dose: 325 mg Calcium Carbonate (Os-Aramis 500mg -) 500 mg PO DAILY [facility] Last Admin: 08/19/17 09:13 Dose: 500 mg Dexamethasone Sodium Phosphate (Decadron Injection -) 4 mg IVPUSH ONCE PRN PRN Reason: NAUSEA AND/OR VOMITING Diazepam (Valium -) 5 mg PO Q8H PRN PRN Reason: MUSCLE SPASMS Last Admin: 08/19/17 22:04 Dose: 5 mg Diphenhydramine HCl (Benadryl Injection -) 25 mg IVPB Q4H PRN PRN Reason: FOR ITCHING Diphenhydramine HCl (Benadryl Injection -) 12.5 mg IVPUSH ONCE PRN PRN Reason: FOR ITCHING Docusate Sodium (Colace -) 100 mg PO BID [facility] Last Admin: 08/19/17 22:04 Dose: 100 mg Enoxaparin Sodium (Lovenox -) 40 mg SQ DAILY [facility] Last Admin: 08/19/17 09:12 Dose: 40 mg Cefazolin Sodium (Ancef -) 1 gm in 10 mls @ 100 mls/hr IVPUSH Q6H-IV [facility] Last Admin: 08/20/17 02:09 Dose: 100 mls/hr Ketorolac Tromethamine (Toradol Injection -) 30 mg IVPUSH Q6H PRN PRN Reason: PAIN LEVEL 4 - 6 Stop: 08/25/17 07:57 Ondansetron HCl (Zofran Injection) 4 mg IVPUSH Q4H PRN PRN Reason: NAUSEA AND/OR VOMITING Last Admin: 08/19/17 02:41 Dose: 4 mg Ondansetron HCl (Zofran Injection) 4 mg IVPUSH Q6H PRN PRN Reason: NAUSEA AND/OR VOMITING Ondansetron HCl (Zofran Injection) 4 mg IVPUSH Q4H PRN PRN Reason: NAUSEA AND/OR VOMITING Oxycodone HCl (Roxicodone -) 5 mg PO Q4H PRN PRN Reason: PAIN LEVEL 1-5 Last Admin: 08/19/17 14:16 Dose: 5 mg Oxycodone HCl (Roxicodone -) 10 mg PO Q4H PRN PRN Reason: PAIN LEVEL 6-10 Promethazine HCl (Phenergan Injection -) 12.5 mg IVPUSH Q6H PRN PRN Reason: NAUSEA-FOR RESCUE AFTER 15 MIN Promethazine HCl (Phenergan Injection -) 12.5 mg IVPB Q6H PRN PRN Reason: NAUSEA AND/OR VOMITING Constitutional: Yes: Awake and alert, NAD Respiratory: Clear Gastrointestinal: Yes: Abdominal incisions are clean without discharge or erythema, (+) BS Breast(s): Yes: Other (Bilateral chest flaps warm with mild ecchymosis. JPs intact. Incisions are clean without discharge or erythema) Extremities: Yes: (+) PP Neuro: Non-focal IMP: POD #2 Bilateral total mastectomies left sentinel node biopsy possible axillary node dissection, left lympho-scintigram, bilat breast reconstruction with DEIP Plan: Pain control with Percocet / Toradol Continuous doppler monitoring/flap viability, notify surgeon of any changes Monitor drain output ASA VTE prophylaxis with Lovenox Dr Covarrubias
[2017-08-20] MEDS: DOCUSATE SODIUM 100 MG CAPSULE (FP) PO SCH ×2 (10:49→21:23)
[2017-08-20] MEDS: ASPIRIN 325 MG TABLET PO SCH (10:49)
[2017-08-20] MEDS: ENOXAPARIN NA (PORCINE) 40 MG/0.4 ML DISP.SYRIN SQ SCH (10:49)
[2017-08-20] MEDS: ASCORBIC ACID 500 MG TABLET (FP) PO SCH (10:49)
[2017-08-20] MEDS ORDERED: PT OWN MED DRAWER 7, Y5N ONE (10:53)
[2017-08-20] MEDS: CALCIUM (OYSTER SHELL) 500 MG TABLET (FP) PO SCH (10:54)
[2017-08-20] MEDS: oxyCODONE HCL 5 MG TABLET PO PRN (15:31)
[2017-08-20] MEDS: KETOROLAC TROMETHAMINE 30 MG/1 ML VIAL IVPUSH PRN (20:28)
[2017-08-21] MEDS: CEFAZOLIN 1 GM PUSH 1 GM/10 ML DISP.SYRIN IVPUSH SCH ×4 (02:07→21:00)
[2017-08-21] MEDS: diazePAM 5 MG TABLET PO PRN (02:12)
[2017-08-21] MEDS: KETOROLAC TROMETHAMINE 30 MG/1 ML VIAL IVPUSH PRN (05:52)
[2017-08-21] MEDS ORDERED: POLYETHYLENE GLYCOL 3350 119 GM BTL PO ONE (09:10)
--- NOTE | 2017-08-21 09:12 | PN ---
Progress Note (short form) - Note Progress Note: Patient seen and examined in the ICU. Awake and alert. Reports pain is better. No nausea but does feel constipated. Intake & Output 08/18/17 08/19/1718 08/21/17 23:59 23:59 23:59 23:59 Intake Total 3400 1600 1200 300 Output Total 2276.0 1875 2650 210 Balance 1124.0 -275 -1450 90 Last Vital Signs Temp Pulse Resp BP Pulse Ox 98.0 F 91 H 18 108/57 98 08/21/17 06:00 08/21/17 06:00 08/21/17 06:00 08/21/17 06:00 08/20/17 20:54 Active Medications Acetaminophen (Tylenol -) 650 mg PO Q4H PRN PRN Reason: FEVER Ascorbic Acid (Vitamin C -) 1,000 mg PO DAILY [facility] Last Admin: 08/20/17 10:49 Dose: 1,000 mg Aspirin (Asa -) 325 mg PO DAILY [facility] Last Admin: 08/20/17 10:49 Dose: 325 mg Calcium Carbonate (Os-Aramis 500mg -) 500 mg PO DAILY [facility] Last Admin: 08/20/17 10:54 Dose: 500 mg Dexamethasone Sodium Phosphate (Decadron Injection -) 4 mg IVPUSH ONCE PRN PRN Reason: NAUSEA AND/OR VOMITING Diazepam (Valium -) 5 mg PO Q8H PRN PRN Reason: MUSCLE SPASMS Last Admin: 08/21/17 02:12 Dose: 5 mg Diphenhydramine HCl (Benadryl Injection -) 25 mg IVPB Q4H PRN PRN Reason: FOR ITCHING Diphenhydramine HCl (Benadryl Injection -) 12.5 mg IVPUSH ONCE PRN PRN Reason: FOR ITCHING Docusate Sodium (Colace -) 100 mg PO BID [facility] Last Admin: 08/20/17 21:23 Dose: 100 mg Enoxaparin Sodium (Lovenox -) 40 mg SQ DAILY [facility] Last Admin: 08/20/17 10:49 Dose: 40 mg Cefazolin Sodium (Ancef -) 1 gm in 10 mls @ 100 mls/hr IVPUSH Q6H-IV [facility] Last Admin: 08/21/17 02:07 Dose: 100 mls/hr Ketorolac Tromethamine (Toradol Injection -) 30 mg IVPUSH Q6H PRN PRN Reason: PAIN LEVEL 4 - 6 Stop: 08/25/17 07:57 Last Admin: 08/21/17 05:52 Dose: 30 mg Ondansetron HCl (Zofran Injection) 4 mg IVPUSH Q4H PRN PRN Reason: NAUSEA AND/OR VOMITING Last Admin: 08/19/17 02:41 Dose: 4 mg Ondansetron HCl (Zofran Injection) 4 mg IVPUSH Q6H PRN PRN Reason: NAUSEA AND/OR VOMITING Ondansetron HCl (Zofran Injection) 4 mg IVPUSH Q4H PRN PRN Reason: NAUSEA AND/OR VOMITING Oxycodone HCl (Roxicodone -) 5 mg PO Q4H PRN PRN Reason: PAIN LEVEL 1-5 Last Admin: 08/20/17 15:31 Dose: 5 mg Oxycodone HCl (Roxicodone -) 10 mg PO Q4H PRN PRN Reason: PAIN LEVEL 6-10 Polyethylene Glycol (Miralax (For Daily Use) -) 17 gm PO ONCE ONE Stop: 08/21/17 09:11 Promethazine HCl (Phenergan Injection -) 12.5 mg IVPUSH Q6H PRN PRN Reason: NAUSEA-FOR RESCUE AFTER 15 MIN Promethazine HCl (Phenergan Injection -) 12.5 mg IVPB Q6H PRN PRN Reason: NAUSEA AND/OR VOMITING Constitutional: Yes: Awake and alert, NAD Respiratory: Clear Gastrointestinal: Yes: Abdominal incisions are clean without discharge or erythema, (+) BS Breast(s): Yes: Other (Bilateral chest flaps warm, less ecchymosis. JPs intact. Incisions are clean without discharge or erythema) Extremities: Yes: (+) PP Neuro: Non-focal IMP: POD #2 Bilateral total mastectomies left sentinel node biopsy possible axillary node dissection, left lympho-scintigram, bilat breast reconstruction with DEIP Plan: Miralax x 1 dose Pain control with Percocet / Toradol Continuous doppler monitoring/flap viability, notify surgeon of any changes Monitor drain output ASA VTE prophylaxis with Lovenox Dr Covarrubias
[2017-08-21] MEDS ORDERED: PT OWN MED DRAWER 7, Y5N ONE (09:24)
[2017-08-21] MEDS: ENOXAPARIN NA (PORCINE) 40 MG/0.4 ML DISP.SYRIN SQ SCH (09:44)
[2017-08-21] MEDS: CALCIUM (OYSTER SHELL) 500 MG TABLET (FP) PO SCH (09:45)
[2017-08-21] MEDS: ASPIRIN 325 MG TABLET PO SCH (09:45)
[2017-08-21] MEDS: DOCUSATE SODIUM 100 MG CAPSULE (FP) PO SCH (09:45)
[2017-08-21] MEDS: ASCORBIC ACID 500 MG TABLET (FP) PO SCH (09:45)
[2017-08-21] MEDS: ONDANSETRON 4 MG/2 ML VIAL IVPUSH PRN (12:45)
[2017-08-21] MEDS ORDERED: METOCLOPRAMIDE HCL INJECTION 10 MG/2 ML VIAL IVPB ONE (18:30)
[2017-08-21] MEDS ORDERED: oxyCODONE HCL 5 MG TABLET PO PRN (19:39)
[2017-08-21] MEDS ORDERED: ONDANSETRON 4 MG/2 ML VIAL IVPUSH PRN ×3 (19:39)
[2017-08-21] MEDS ORDERED: BUPIVACAINE LIPOSOME/PF (EXPAREL) 266 MG/20 ML VIAL NR ONE (19:39)
[2017-08-21] MEDS ORDERED: ACETAMINOPHEN 325 MG TABLET (FP) PO PRN (19:39)
[2017-08-21] MEDS ORDERED: KETOROLAC TROMETHAMINE 30 MG/1 ML VIAL IVPUSH PRN (19:39)
[2017-08-22] MEDS: CEFAZOLIN 1 GM PUSH 1 GM/10 ML DISP.SYRIN IVPUSH SCH ×2 (03:00→10:10)
[2017-08-22] MEDS ORDERED: CALCIUM (OYSTER SHELL) 500 MG TABLET (FP) PO SCH (10:00)
[2017-08-22] MEDS ORDERED: BACITRACIN 15 GM TUBE TOPICAL OINTMENT TP SCH (10:00)
[2017-08-22] MEDS ORDERED: ASCORBIC ACID 500 MG TABLET (FP) PO SCH (10:00)
[2017-08-22] MEDS ORDERED: ASPIRIN 325 MG TABLET PO SCH (10:00)
[2017-08-22] MEDS ORDERED: ENOXAPARIN NA (PORCINE) 40 MG/0.4 ML DISP.SYRIN SQ SCH (10:00)
[2017-08-22] MEDS: DOCUSATE SODIUM 100 MG CAPSULE (FP) PO SCH ×2 (10:12→10:19)
[2017-08-22 12:07] VITALS: BP 100/66; PULSE 92; TEMP 99
--- NOTE | 2017-08-25 17:36 | PATH ---
Surgical Pathology Report Patient Name: CHELSIE REYNA [facility]. Rec. #: [id number] /Age/Gender: 1965 (Age: 52) / F Account: [id number] Location: [facility]/SURG Taken: 08/18/2017 Received: 08/18/2017 Reported: 08/25/2017 Physicians: Everette Mike M.D. Specimen(s) Received A: LEFT AXILLARY SENTINEL LYMPH NODE #1 B: LEFT AXILLARY SENTINEL LYMPH NODE #2 C: LEFT AXILLARY SENTINEL LYMPH NODE #3 D: RETRO AREOLAR BIOPSY RIGHT BREAST E: RETRO AREOLAR BIOPSY LEFT BREAST F: LEFT AXILLARY NON SENTINEL LYMPH NODE G: RIGHT BREAST H: LEFT BREAST Clinical History Left breast cancer Intraoperative Consult Diagnosis A. Left axillary sentinel lymph node #1, frozen section: One benign lymph node (0/1). B. Left axillary sentinel lymph node #2, frozen section: One benign lymph node (0/1). C. Left axillary sentinel lymph node #3, frozen section: One benign lymph node (0/1). D. Retroareolar, right, biopsy, frozen section: Focal atypical ductal hyperplasia. E. Retroareolar, left, biopsy, frozen section: Negative. Loni Snow M.D., 08/18/17 Final Diagnosis A. AXILLARY SENTINEL NODE #1, LEFT, EXCISION (FS): ONE BENIGN LYMPH NODE (0/1). B. AXILLARY SENTINEL NODE #2, LEFT, EXCISION (FS): ONE BENIGN LYMPH NODE (0/1). C. AXILLARY SENTINEL NODE #3, LEFT, EXCISION (FS): ONE BENIGN LYMPH NODE (0/1). D. BREAST, RIGHT, RETROAREOLAR, EXCISION (FS): FOCAL ATYPICAL DUCTAL HYPERPLASIA, BEST SEEN IN FROZEN SECTION LEVELS. E. BREAST, LEFT, RETROAREOLAR, EXCISION (FS): BENIGN BREAST TISSUE. F. AXILLARY NON-SENTINEL NODE, LEFT, EXCISION (FS): ONE BENIGN LYMPH NODE (0/1). G. BREAST, RIGHT, MASTECTOMY: LOBULAR CARCINOMA IN SITU (LCIS) AND ATYPICAL DUCTAL HYPERPLASIA IN A BACKGROUND OF PROLIFERATIVE FIBROCYSTIC CHANGES INCLUDING STROMAL FIBROSIS, MICROCYSTS, USUAL DUCTAL HYPERPLASIA, SCLEROSING ADENOSIS, AND ASSOCIATED MICROCALCIFICATIONS. PRIOR BIOPSY SITE CHANGES IDENTIFIED. H. 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 SURGICAL MARGINS ARE UNINVOLVED BY CARCINOMA; INVASIVE CARCINOMA IS AT 8 MM, WHILE DCIS IS AT 1 MM FROM CLOSEST ANTERIOR SOFT TISSUE MARGIN. REMAINDER OF BREAST TISSUE SHOWS PROLIFERATIVE FIBROCYSTIC CHANGES INCLUDING STROMAL FIBROSIS, MICROCYSTS, USUAL DUCTAL HYPERPLASIA, SCLEROSING ADENOSIS, SCLEROSED FIBROADENOMA, AND ASSOCIATED MICROCALCIFICATIONS. PRIOR BIOPSY SITE CHANGES ARE PRESENT. PATHOLOGIC STAGE (PTNM): pT1mi pN0. SEE INVASIVE CARCINOMA CASE SUMMARY BELOW. Comment: Immunohistochemical stains performed and interpreted at [facility] show E-cadherin is negative in LCIS (part G). Microinvasive carcinoma is negative for P63 and smooth muscle myosin heavy chain (SMMHC) immunohistochemical stains (part H). . Comments Breast Invasive Carcinoma: Surgical Pathology Case Summary (Based on AJCC TNM 8 th edition) Procedure _X_ Total mastectomy (including nipple-sparing and skin-sparing mastectomy) Specimen Laterality _X_ Left Tumor Size _X_ Microinvasion only (=1 mm) Histologic Type _X__ Micro-invasive carcinoma Tumor Focality _X_ Single focus of invasive carcinoma Ductal Carcinoma In Situ (DCIS) _X_ DCIS is present in specimen _X_ Positive for EIC Margins Invasive Carcinoma Margins _X_ Uninvolved by invasive carcinoma Distance from closest margin (millimeters): 8 mm Closest margin: Anterior soft tissue margin DCIS Margins _X__ Uninvolved by DCIS Distance from closest margin (millimeters): 1 mm Closest margin: Anterior soft tissue margin Regional Lymph Nodes Number of Lymph Nodes with Macrometastases (>2 mm): 0 Number of Lymph Nodes with Micrometastases (>0.2 mm to 2 mm and/or >200 cells): 0 Number of Lymph Nodes with Isolated Tumor Cells (=0.2 mm and =200 cells): 0 Number of Lymph Nodes Examined: 4 Number of Hume Nodes Examined : 3 Treatment Effect _X_ No known presurgical therapy Lymphovascular Invasion _X_ Not identified Pathologic Stage Classification (pTNM, AJCC 8th Edition) Primary Tumor (Invasive Carcinoma) (pT) _X_ pT1mi: Tumor =1 mm in greatest dimension Regional Lymph Nodes (pN) Category (pN) _X_ pN0: No regional lymph node metastasis identified or ITCs only Biomarker Studies: Pending and will be reported as an addendum. Electronically Signed Samantha Garcia M.D. Gross Description A. Received fresh labeled "left axillary sentinel lymph node #1," is a 0.7 x 0.4 x 0.3 cm polanco lymph node. The specimen is entirely submitted for frozen section. The frozen section residue is entirely submitted in one cassette. B. Received fresh labeled "left axillary sentinel lymph node #2," is a 1.6 x 1.2 x 0.6 cm polanco lymph node. The specimen is bisected and entirely submitted for frozen section. The frozen section residue is entirely submitted in one cassette. C. Received fresh labeled "left axillary sentinel lymph node #3," is a 1.3 x 0.7 x 0.3 cm polanco lymph node. The specimen is entirely submitted for frozen section. The frozen section residue is entirely submitted in one cassette. D. Received fresh labeled "right breast retroareolar biopsy," is a 3.0 x 0.8 x 0.3 cm portion of red-polanco fibroadipose tissue. The specimen is entirely submitted for frozen section. The frozen section residue is entirely submitted in one cassette. E. Received fresh labeled "left breast retroareolar biopsy," is a 1.0 x 0.7 x 0.4 cm portion of red-polanco fibroadipose tissue. The specimen is entirely submitted for frozen section. The frozen section residue is entirely submitted in one cassette. F. Received in formalin labeled "left axillary non-sentinel lymph node," is a 0.6 x 0.4 x 0.2 cm lymph node with attached fat. The specimen is submitted in toto in one cassette. G. Received in formalin, labeled "right breast 468 g," is an 18.0 x 16.5 x 3.7 cm. right mastectomy specimen with a short suture marking the superior aspect and a long suture marking the lateral aspect of the specimen, per the surgeon. There is no skin or nipple present. The deep margin is inked black and the anterior soft tissue margin is inked blue. The specimen is serially sectioned from lateral to medial. Sectioning reveals a 2.0 x 1.8 x 0.6 cm focus of firm fibrosis in the lower inner quadrant (LIQ). There is a atkins metallic biopsy clip identified within the focus of fibrosis. The remaining breast parenchyma displays abundant dense, white, focally firm fibrous tissue. Ciaio Lumite Injector sections are submitted in 13 cassettes as follows: 1-3-LIQ fibrosis; 6-5-dvixslvmwr LIQ tissue; 6-7-upper inner quadrant; 8-9-upper outer quadrant; 10-11-lower outer quadrant; 12-anterior soft tissue margin; 13-deep margin. H. Received in formalin, labeled "left breast 509 g," is a 16.5 x 16.0 x 3.5 cm. left mastectomy specimen with a short suture marking the superior aspect and a long suture marking the lateral aspect of the specimen, per the surgeon. There is no skin or nipple present. The deep margin is inked black and the anterior soft tissue margin is inked blue. The specimen is serially sectioned from medial to lateral. Sectioning reveals a 1.6 x 1.4 x 1.2 cm ill-defined focus of firm fibrous tissue with associated hemorrhage in the upper outer quadrant (UOQ), consistent with a previous biopsy site. The biopsy site abuts the anterior soft tissue margin. There is a atkins metallic biopsy clip identified within the biopsy site. There is a second biopsy site identified in the UOQ, 1 cm superior to the first biopsy site. The second biopsy site measures 1.2 x 0.8 x 0.6 cm and also abuts the anterior soft tissue margin and displays a salazar metallic biopsy clip. No definitive mass is identified grossly. The remaining breast parenchyma displays abundant dense, white, focally firm fibrous tissue Ciaio Lumite Injector sections are submitted in 17 cassettes as follows: 1-3-UOQ biopsy site #1, sequentially submitted; 4-6-UOQ biopsy site #2, sequentially submitted; 7-section displaying both biopsy site #1 and biopsy site #2; 3-0-kzhwhwctut UOQ; 10-11-lower outer quadrant; 12-13-upper inner quadrant; 14-15-lower inner quadrant; 16-anterior soft tissue margin; 17-deep margin; 62-49-iorvusgymg sections from biopsy site #1 with associated hemorrhage; 89-32-awowukpfdn firm UOQ tissue abutting anterior soft tissue margin, medial to biopsy site #1. Total formalin fixation time: Between 24-28 hours 08/18/201708/18/2017
== END 2017-08-22 17:14 | disposition home health service (06) | DRG 581 ==
LOC: JSAMEDAYSX 04:59 → EDSTATUS 08:30 → JICU 20:55 → J8W 08-21 21:31
PROVIDERS: ADMIT Surgery Surgical Oncology; ATTEND Surgery Surgical Oncology
PROC: 0HRV077 Replacement of Bilateral Breast using Deep Inferior Epigastric Artery Perforator Flap, Open Approach (ICD-10-PCS; 2017-08-18)
PROC: 30233N1 Transfusion of Nonautologous Red Blood Cells into Peripheral Vein, Percutaneous Approach (ICD-10-PCS; 2017-08-18)
PROC: 0HTV0ZZ Resection of Bilateral Breast, Open Approach (ICD-10-PCS; principal; 2017-08-18 08:30)
PROC: 07B60ZX Excision of Left Axillary Lymphatic, Open Approach, Diagnostic (ICD-10-PCS; 2017-08-18 08:30)
PROC: 0PB10ZZ Excision of 1 to 2 Ribs, Open Approach (ICD-10-PCS; 2017-08-18 08:30)
PROC: 0WUF0JZ Supplement Abdominal Wall with Synthetic Substitute, Open Approach (ICD-10-PCS; 2017-08-18 08:30)
DX: C50.412 Malignant neoplasm of upper-outer quadrant of left female breast (principal); F41.8 Other specified anxiety disorders; R11.0 Nausea; Z15.01 Genetic susceptibility to malignant neoplasm of breast; M85.88 Other specified disorders of bone density and structure, other site; D50.0 Iron deficiency anemia secondary to blood loss (chronic); Z17.0 Estrogen receptor positive status [ER+]
CPT/HCPCS: 36415; 78195-TC; 80053; 84703; 85027; 86850; 86900; 86901; 86922; A9541; J1170; J1644; P9038; P9058

== ENCOUNTER 2020-08-05 13:29 | Observation (INO) | payer OTHER ==
[2020-08-05 13:45] VITALS: BMI 23.0
[2020-08-05 14:37] LABS: BASO % 1.1 % (0-2.0); HEMATOCRIT 40.9 % (32.4-45.2); HEMOGLOBIN 13.6 GM/dL (10.7-15.3); MCH 29.1 pg (25.7-33.7); MCHC 33.3 g/dl (32.0-36.0); MEAN CELL VOLUME 87.4 fl (80-96); MEAN PLT VOLUME 8.7 fl (7.5-11.1); MONO % 4.8 % (3.8-10.2); NEUT % 52.1 % (42.8-82.8); PLATELET COUNT 240 K/MM3 (134-434); RBC 4.68 M/mm3 (3.60-5.2); RDW 13.6 % (11.6-15.6); WHITE BLOOD COUNT 7.2 K/mm3 (4.0-10.0)
[2020-08-05 14:45] LABS: INR 1.04 (0.83-1.09); PROTHROMBIN TIME (PATIENT) 12.6 SEC (9.7-13.0)
[2020-08-05 14:48] LABS: ACTIVATED PTT 28.5 SECONDS (25.2-36.5)
[2020-08-05 14:52] LABS: CHLORIDE 111 mmol/L (98-107); SODIUM 144 mmol/L (136-145)
[2020-08-05 14:54] LABS: CALCIUM 9.3 mg/dL (8.5-10.1)
[2020-08-05 14:55] LABS: ALBUMIN 4.1 g/dl (3.4-5.0); ANION GAP 7 MMOL/L (8-16); BLOOD UREA NITROGEN 16.7 mg/dL (7-18); CO2 26 mmol/L (21-32); GLUCOSE,RANDOM 96 mg/dL (74-106)
[2020-08-05 14:57] LABS: CREATININE 0.7 mg/dL (0.55-1.3); SGOT/AST 14 U/L (15-37); SGPT/ALT 18 U/L (13-61)
[2020-08-05 14:59] LABS: BILIRUBIN,TOTAL 0.5 mg/dL (0.2-1)
[2020-08-05 15:00] LABS: ALK PHOS 95 U/L (45-117)
[2020-08-05 15:29] LABS: URINE APPEARANCE CLEAR; URINE BILIRUBIN NEGATIVE (NEGATIVE); URINE COLOR YELLOW; URINE GLUCOSE (UA) NEGATIVE (NEGATIVE); URINE KETONE NEGATIVE (NEGATIVE); URINE LEUK ESTERASE NEGATIVE (NEGATIVE); URINE NITRITE NEGATIVE (NEGATIVE); URINE PROTEIN NEGATIVE (NEGATIVE); URINE UROBILINOGEN 0.2 mg/dL (0.2-1.0)
[2020-08-05] MEDS ORDERED: ACETAMINOPHEN 650 MG SUPP.RECT PR PRN (16:34)
[2020-08-05] MEDS ORDERED: SODIUM CHLORIDE 1,000 ML IV SCH (16:45)
[2020-08-05 18:17] LABS: COCAINE, UR NEGATIVE ng/ml (CUTOFF=300); PHENCYCLIDINE,URINE NEGATIVE ng/ml (CUTOFF=25)
[2020-08-05 18:18] LABS: METHADONE, UR NEGATIVE ng/ml (CUTOFF=300); OPIATES, URI NEGATIVE ng/ml (CUTOFF=300); URINE AMPHETAMINES NEGATIVE ng/ml (CUTOFF=500); URINE BARBITURATES NEGATIVE ng/ml (CUTOFF=200); URINE BENZODIAZEPINES NEGATIVE ng/ml (CUTOFF=200)
[2020-08-05] MEDS ORDERED: MUPIROCIN 2% TOPICAL OINTMENT FOR DECOLONIZATION NS SCH (22:00)
[2020-08-05] MEDS ORDERED: CHLORHEXIDINE GLUCONATE 4% CLEANSER FOR DECOLONIZATION TP SCH (22:00)
[2020-08-06 07:34] LABS: HEMATOCRIT 37.1 % (32.4-45.2); HEMOGLOBIN 12.7 GM/dL (10.7-15.3); MCH 29.6 pg (25.7-33.7); MCHC 34.1 g/dl (32.0-36.0); MEAN CELL VOLUME 86.9 fl (80-96); MEAN PLT VOLUME 8.7 fl (7.5-11.1); PLATELET COUNT 209 K/MM3 (134-434); RBC 4.27 M/mm3 (3.60-5.2); WHITE BLOOD COUNT 6.4 K/mm3 (4.0-10.0)
[2020-08-06 07:44] LABS: POTASSIUM 4.2 mmol/L (3.5-5.1)
[2020-08-06 07:51] LABS: ALBUMIN 3.3 g/dl (3.4-5.0); BLOOD UREA NITROGEN 16.2 mg/dL (7-18); CALCIUM 8.7 mg/dL (8.5-10.1); MAGNESIUM 2.1 mg/dL (1.8-2.4)
[2020-08-06 07:54] LABS: CREATININE 0.6 mg/dL (0.55-1.3); PHOSPHOROUS 3.7 mg/dL (2.5-4.9)
[2020-08-06 07:56] LABS: BILIRUBIN,TOTAL 0.6 mg/dL (0.2-1); TOT PROT 5.9 g/dl (6.4-8.2)
[2020-08-06] MEDS ORDERED: PT OWN MED DRAWER 7, Y5N ONE ×2 (09:43→10:54)
[2020-08-06] MEDS ORDERED: ENOXAPARIN NA (PORCINE) 40 MG/0.4 ML DISP.SYRIN SQ SCH (10:00)
[2020-08-06] MEDS ORDERED: ANASTROZOLE 1 MG TABLET PO SCH (10:00)
[2020-08-06 10:01] VITALS: BP 91/46; PULSE 63; TEMP 97.8
== END 2020-08-06 16:06 | disposition home or self-care (01) ==
LOC: JER 13:29 → JERBED 17:32 → J4W 23:12
PROVIDERS: ATTEND Internal Medicine
PROC: 3E0337Z Introduction of Electrolytic and Water Balance Substance into Peripheral Vein, Percutaneous Approach (ICD-10-PCS; principal; 2020-08-05)
DX: Z90.13 Acquired absence of bilateral breasts and nipples (principal); Z85.3 Personal history of malignant neoplasm of breast; Z79.890 Hormone replacement therapy
CPT/HCPCS: 36415; 70450-TC; 71045-TC-FY; 80053; 80307; 81003; 83735; 84100; 84443; 84484; 85025; 85027; 85610; 85730; 87086; 93005; 93010; 93306-TC; 93880-TC; 96360; 99285-25; C9803; G0378; U0003